=== PATIENT | male | born 1950 | race Caucasian/White ===

== ENCOUNTER 2022-01-03 02:22 | Emergency (ER) | payer OTHER ==
[~2022-01-03] VITALS: Ht 180.3 cm; Wt 123.4 kg
[2022-01-03 02:30] VITALS: BP_SYST 125
[2022-01-03] MEDS ORDERED: VANCOMYCIN HCL 1,500 MG in NS 250 ML IV ONE (06:00)
[2022-01-03] MEDS ORDERED: VANCOMYCIN HCL 1000 MG/VIAL IV ONE (06:11)
[2022-01-03] MEDS ORDERED: ACETAMINOPHEN 500 MG TABLET PO ONE (07:00)
[2022-01-03 17:30] VITALS: BP_SYST 123
== END 2022-01-03 14:47 | disposition home or self-care (01) ==
LOC: SED 02:22
DX: Z44.8 Encounter for fitting and adjustment of other external prosthetic devices (principal); I10 Essential (primary) hypertension; K21.9 Gastro-esophageal reflux disease without esophagitis; Z79.899 Other long term (current) drug therapy
CPT/HCPCS: 99285; 96365; 71045; 96366; J3370